=== PATIENT | female | born 1955 | race Caucasian/White ===

== ENCOUNTER → 2016-11-09 | Outpatient (CLI) | payer OTHER ==
[~2016-11-09] MED LIST: CHOL100010 PO; PARO30TA5 PO; RISP0.5T10 PO
[2016-11-09 15:55] LABS: BASO % 0.1 %; BASO ABS # 0.01 K/uL (0-0.2); COMPLETE YES; EOS % 1.2 %; HEMATOCRIT 39.9 % (37-47); IG% 0.3 %; LYMPH % 29.2 %; LYMPH ABS # 2.18 K/uL (1.2-3.4); MEAN CELL VOLUME 85.4 fL (80-100); MEAN CORPUSCULAR HEMOGLOBIN 27.6 pg (25-34); MEAN CORPUSCULAR HGB CONC 32.3 g/dl (32-36); MEAN PLATELET VOLUME 10.8 fL (7.4-10.4); MONO % 7.6 %; NEUT % 61.6 %; PLATELET COUNT 247 K/uL (130-400); RED BLOOD COUNT 4.67 M/uL (4.2-5.4); WHITE BLOOD COUNT 7.46 K/uL (4.8-10.8)
[2016-11-09 16:08] LABS: ALT/SGPT 32 U/L (12-78); AST/SGOT 24 U/L (15-37); BLOOD UREA NITROGEN 19 mg/dl (7-18); BUN/CREATININE RATIO 20.8 (10-20); CALCIUM 9.1 mg/dl (8.5-10.1); CARBON DIOXIDE 28 mmol/L (21-32); CHLORIDE 107 mmol/L (98-107); CREATININE 0.91 mg/dl (0.60-1.20); GLUCOSE 105 mg/dl (70-99); POTASSIUM 3.9 mmol/L (3.5-5.1); SODIUM 142 mmol/L (136-145)
[2016-11-09 16:19] LABS: ALKALINE PHOSPHATASE 140 U/L (45-117)
== END | disposition home or self-care (01) ==
LOC: C.LAB1850 14:51
PROVIDERS: ATTEND Internal Medicine
DX: E55.9 Vitamin D deficiency, unspecified (principal); F41.8 Other specified anxiety disorders; R53.83 Other fatigue; Z12.11 Encounter for screening for malignant neoplasm of colon; Z13.29 Encounter for screening for other suspected endocrine disorder

== ENCOUNTER → 2017-05-16 | Outpatient (CLI) | payer OTHER | END | disposition home or self-care (01) | LOC: C.LAB1850 14:50 | PROVIDERS: ATTEND Internal Medicine | DX: E55.9 Vitamin D deficiency, unspecified (principal) ==

== ENCOUNTER → 2018-02-07 | Outpatient (CLI) | payer OTHER ==
--- NOTE | 2018-02-08 13:38 | MAMMOGRAPHY REPORT ---
BILATERAL DIGITAL SCREENING MAMMOGRAM TOMOSYNTHESIS WITH CAD: 02/07/2018 CLINICAL HISTORY: Routine screening. Patient has no complaints. TECHNIQUE: The study was acquired using full field digital technology and interpreted from soft copy. Breast tomosynthesis in addition to standard 2D mammography was performed. Current study was also ev aluated with a Computer Aided Detection (CAD) system. COMPARISON: Comparison is made to exam dated: 09/19/2014 mammogram - [facility]. BREAST COMPOSITION: The tissue of both breasts is almost entirely fatty. FINDINGS: The parenchymal pattern is unchanged. No developing mass, architectural distortion or cluster of susp icious microcalcifications is seen in either breast. IMPRESSION: ACR BI-RADS CATEGORY 2: BENIGN There is no mammographic evidence of malignancy. A 1 year screening mammogram is recommended.( 019) The patient will receive written notification of the results. Some breast cancers are not detected with mammography. A negative mammographic report should not carlos y biopsy if a clinically suggestive mass is present. Jaquelin Weldon M.D. ay/:02/07/2018 19:32:00 Production Or Plant Engineer: RT Agata(R)(M)(BD), [facility] letter sent: Normal 1/2 BI-RADS Code: ACR BI-RADS Category 2: Benign
== END | disposition home or self-care (01) ==
LOC: C.MAMM 13:30
PROVIDERS: ATTEND Internal Medicine
DX: Z12.31 Encounter for screening mammogram for malignant neoplasm of breast (principal)

== ENCOUNTER 2025-01-28 15:28 | Inpatient (IN) ==
--- NOTE | 2025-01-28 16:17 | Emergency Department Note ---
Impression & Plan Sepsis, Upper respiratory infection, viral, Acute hyponatremia, Worsening renal function, Acute dehydration, Weakness, Tachycardia ED Provider Note NAME: KAMILLE STARKS AGE: 69 SEX: F : 1955 ARRIVES VIA: Walk-In INFORMANT: Patient, ED PROVIDER(S): Lei Miranda DO CHIEF COMPLAINT: chills HPI: This is a 69-year-old female with the PMHx of Hypertriglyceridemia, osteoporosis, GERD, macular degeneration, and mood disorder presenting to [facility] for further evaluation of chills. Patient is accompanied by her who provide additional history. The patient states that she has been ill for the last 10 days. Patient reports urinary frequency and incontinence. Mild dysuria. Patient states she was diagnosed with a kidney infection and started on Bactrim. She has since completed a 7-day course of Bactrim. Patient states that her urinary symptoms have mildly improved but she continues with chills. She describes that she is unable to get warm. She also describes shaking episodes. She does report mild congestion and nonproductive cough. She states that she has a mild sore throat. Patient reports lack of appetite and intermittent nausea. No episodes of emesis. Denies chest pain or palpitations. No shortness of breath. They deny abdominal pain And vomiting. No recent changes in bowel movements. Patient denies recent changes in medications or OTC supplements. Patient offers no other complaints, today. ADDITIONAL HISTORY OBTAINED: Per HPI Chronic Medical/Social Conditions Affecting Care: Per HPI PAST MEDICAL HISTORY: See Below PAST SURGICAL HISTORY: See Below FAMILY HISTORY: See Below SOCIAL HISTORY: See Below HOME MEDICATIONS: See Below ALLERGIES: See Below VITALS: See Below PHYSICAL EXAMINATION: GENERAL: Sitting up in bed, alert, well appearing, well nourished, no distress, non-toxic EYE EXAM: normal conjunctiva. PERRL and EOM's grossly intact. OROPHARYNX: no exudate, no erythema, lips, buccal mucosa, and tongue normal and mucous membranes are dry NECK: supple, no nuchal rigidity, no adenopathy, non-tender LUNGS: Clear to auscultation. Normal chest wall mechanics HEART: no murmurs, tachycardic rate, regular rhythm ABDOMEN: abdomen soft, non-tender, no masses, no rebound or guarding. BACK: Back is symmetrical on inspection and there is no deformity, no midline tenderness, no CVA tenderness. SKIN: no rashes and no bruising UPPER EXTREMITIES: upper extremities are grossly normal. LOWER EXTREMITIES: No pitting edema. NEURO EXAM: Normal sensorium, GCS 15, normal speech, no gross weakness of arms, no gross weakness of legs. MEDICAL DECISION MAKING: Differential diagnoses includes but not limited to complicated UTI, sepsis, bacteremia, pyelonephritis, renal abscess, obstructing kidney stone, viral URI, pneumonia, electrolyte derangements, kidney dysfunction, medication side effect In summary, this is a 69 year old female who presented with chills. Differential as above. Nursing notes and pertinent past medical records reviewed. Vital signs reviewed and the patient is borderline febrile and tachycardic on arrival. She is otherwise afebrile and hemodynamically stable. History and presentation revealed recent diagnosis of UTI/kidney infection by PCP. I reviewed culture data from 01/21. Patient had a urinalysis with a positive culture for E. coli. Largely pansensitive but resistant to fluoroquinolones. She has been on a course of Bactrim for the last 7 days. She completed the course. Still having what sounds like rigors at home. Poor appetite. Given the patient's rigors and ongoing features that are consistent with a SIRS response, will obtain a CT abdomen/pelvis with IV contrast for further evaluation of pyelonephritis and kidney stones. Physical examination revealed . She appears dry and tachycardic. No CVA TTP or evidence of peritonitis. As a result of my initial evaluation, The patient is still having chills. While she does have URI symptoms, she could have a complicated UTI including pyelonephritis or an obstructing stone. Patient does not have evidence of other intra-abdominal pathology but has been intermittently nauseous. I wonder if some of her symptoms could be related to the Bactrim. Could be a medication side effect. Will begin IV fluid resuscitation and broad-spectrum antibiotics. I did offer the patient pain control and antiemetics but she declined. Diagnostics interpreted by me include EKG and cardiac monitoring as listed below: -Cardiac Monitoring: An order was placed for continuous cardiac monitoring. The monitor shows a rate of 90-120 with regular rhythm. -ECG: EKG independently interpreted me reveals sinus tachycardia at a rate of [address] segment changes to suggest STEMI. Intervals are otherwise within normal limits. QTc is 414 ms. Patient completed laboratory studies and imaging. Results independently interpreted by me are VBG showing no issues with ventilation. Mild hyponatremia. Kidney function has worsened since September. Near BOB. The patient was managed with IV fluid resuscitation and cefepime. Urinalysis did not show evidence of UTI. Patient CT abdomen/pelvis was independently interpreted by me as negative for acute pathology in the abdomen or pelvis. Insert chest x-ray I question whether there could be possible retrocardiac or lower lobe infiltrates. The patient's presentation and physical examination are consistent with possible viral illness or pneumonia. She has remained tachycardic despite IV fluid resuscitation. Patient could have a viral URI that is causing her symptoms. Patient could have pneumonia. Overall workup today is reassuring. I do recommend that we continue antibiotics given concerns for possible rigors at home. Patient will need to have follow-up on her culture data including blood cultures. I do feel that the patient could likely be discharged but she feels very weak and has no appetite. She lacks p.o. intake. I do feel for this reason that she is unsafe for discharge. Will discuss with the hospitalist for admission. Ultimately, the decision was made to admit the patient for SIRS response 2/2 viral URI, question possible PNA, hyponatremia, dehydration and worsening kidney function. I discussed the case with the hospitalist service via telephone/TigerText and they are agreeable to admit the patient to their services. Based on the above, including the patient's age, coexisting illnesses, labs, imaging, and exam findings the decision to treat as an inpatient. I discussed the patient with the hospitalist team who recommended admission to their services. They received the medications, treatments, interventions indicated above and their condition remained guarded. I discussed my findings with the patient and their family and they understand and agree with the treatment plan. All patient / family questions were answered to their satisfaction. Consults/Care Managements Discussions: Per [facility] ER treatment provided: See above Procedures:none Critical Care: None The chart was completed utilizing [employer] voice recognition software. Grammatical errors, random word insertions, pronoun errors, and incomplete sentences are an occasional consequence of this system due to software limitations, ambient noise, and hardware issues. Any formal questions or concerns about the content, text, or information contained within the body of this dictation should be directly addressed to the physician for clarification. Past Med/Surg History Problem List (Updated 01/28/25 @ 20:21 by Lei Miranda DO) Tachycardia (Acute) Weakness (Acute) Acute dehydration (Acute) Worsening renal function (Acute) Acute hyponatremia (Acute) Upper respiratory infection, viral (Acute) Sepsis (Acute) Health care maintenance Macular degeneration of right eye Receives injections, "now back to 20/20 vision" Cerebrovascular disease Incidentally noted on imaging Moderate chronic small vessel change involving the periventricular and optic radiation regions per [address] Hypertriglyceridemia Osteoporosis S/P laparoscopic cholecystectomy BMI 30.0-30.9,adult Constipation Gastritis GERD (gastroesophageal reflux disease) Pre-diabetes Degenerative disc disease, cervical Allergic rhinitis (Acute) Delusional disorder Deviated septum Macular degeneration Posttraumatic stress disorder (02/28/13) Renal cyst, right Sleep disturbances Urinary incontinence Visual disturbances Vitamin D deficiency Renal lesion Under surveillance Medical History Closed fracture of metatarsal neck (~03/25/24) Biliary dyskinesia Nausea & vomiting RUQ abdominal pain Closed head injury Avulsion fracture of distal fibula Urinary incontinence Delusional disorder DDD (degenerative disc disease), cervical Hx of constipation Hx of gastritis History of hypertension Deviated septum Hx of rheumatic fever Prediabetes Ophthalmic disorder Anxiety Lower urinary tract symptoms PTSD (post-traumatic stress disorder) Hx of sinus tachycardia Dyslipidemia GERD (gastroesophageal reflux disease) Back pain Cervicalgia Kidney cysts Surgical History Hx laparoscopic cholecystectomy (08/27/24) History of nasal surgery History of esophagogastroduodenoscopy (EGD) S/P laparoscopic procedure S/P dilation and curettage History of colonoscopy Hx of eye surgery H/O tubal ligation Hx of tonsillectomy Family History Mother Diabetes Father Coronary heart disease Denies family history of Colon cancer Ovarian cancer Prostate cancer Breast cancer Uterine cancer Social History Smoking Status: Never smoker Second Hand Exposure: No; Do You Dip or Chew Tobacco: No; Hx Alcohol Use: Yes Alcohol Intake Frequency: Monthly or Less Hx Substance Use: No Preferred Language: Finnish Communication Ability: Effective Visual Impairment: No Limitations Hearing Ability: Normal Hand Trucker Required: No Beliefs That Will Affect Care: None marital status: Current Living Situation: Spouse current occupational status: unemployed How many Children do You have: 2 Feels Safe at Home: Yes Childhood Exposure to Second-Hand Smoke: No Dental Care, Regularly: Yes Physical Activity Frequency: 3-4 Times per Week Seatbelt Use: always Sunscreen Use: Yes Assistive Devices: None Allergies Allergies Allergy/AdvReac Type Severity Reaction Status Date / Time risperidone [From Risperdal] Allergy Mild aggitation Verified 01/28/25 19:16 sulfamethoxazole AdvReac Severe Chills Unverified 01/28/25 19:17 [From Bactrim] trimethoprim [From Bactrim] AdvReac Severe Chills Unverified 01/28/25 19:17 chlorpromazine AdvReac Intermediate Light Verified 01/28/25 19:16 [From Thorazine] sensitivity prochlorperazine AdvReac Intermediate Light Verified 01/28/25 19:16 sensitivity lamotrigine [From Lamictal] AdvReac Mild Itching Verified 01/28/25 19:16 naproxen AdvReac Mild Upset Verified 01/28/25 19:16 stomach venlafaxine [From Effexor] AdvReac Mild Anxiety Verified 01/28/25 19:16 Home Meds Home Medications Medication Instructions Recorded Confirmed brexpiprazole 1 mg tablet (Rexulti) 3 mg PO HS 12/12/19 01/28/25 vit C 250 mg-vit E 90 mg-zinc 40 1 tab PO BID 10/26/23 01/28/25 mg-copper 1 [id number] capsule (PreserVision AREDS-2) abaloparatide (Tymlos) 80 mcg subcut DAILY 11/14/24 01/28/25 calcium carbonate (Calcium 600) 1,200 mg PO DAILY 01/28/25 01/28/25 omega-3 fatty acids-fish oil 684 4 cap PO DAILY 01/28/25 01/28/25 mg-1,200 mg capsule,delayed release Previous Rx's Medication Instructions Recorded cholecalciferol (vitamin D3) 50 50 mcg PO DAILY #90 caps 02/08/24 mcg (2,000 unit) capsule fenofibrate nanocrystallized 48 mg 48 mg PO HS #90 tabs 01/23/25 tablet (Tricor) Results & Data (ED) Vital Signs Vital Signs - 24 hr 01/28/25 15:35 01/28/25 16:59 01/28/25 17:06 Temperature 37.7 C H Temperature Source Oral Pulse Rate 112 H 100 H 100 H Pulse Rate from SpO2 Sensor 100 H Respiratory Rate 20 24 Respiratory Effort / Characteristics Non-Labored Respiratory Depth Normal Blood Pressure 105/68 118/75 Blood Pressure Mean 80 89 Pulse Oximetry 93 92 Oxygen Delivery Method Room Air Oxygen Flow Rate Sepsis Recent Fever Within 48 Hours Yes Sepsis New/Unexplained Change in Mental Status Yes Sepsis Action Taken by Nursing No Action Required Oxygen Flow Rate - Titration Pulse Oximetry Post Tiitration 01/28/25 18:00 01/28/25 19:06 01/28/25 19:23 Temperature Temperature Source Pulse Rate 99 H 101 H Pulse Rate from SpO2 Sensor 98 H 100 H Respiratory Rate 29 H 20 Respiratory Effort / Characteristics Respiratory Depth Blood Pressure 116/76 Blood Pressure Mean 89 Pulse Oximetry 90 90 86 L Oxygen Delivery Method Nasal Cannula Oxygen Flow Rate 0 Sepsis Recent Fever Within 48 Hours Sepsis New/Unexplained Change in Mental Status Sepsis Action Taken by Nursing Oxygen Flow Rate - Titration 2 Pulse Oximetry Post Tiitration 94 Laboratory Data 01/28/25 15:50 01/28/25 17:04 Lab Results 01/28/25 01/28/25 01/28/25 Range/Units 15:50 16:32 16:35 WBC 6.19 (4.8-10.8) K/ul RBC 4.64 (4.20-5.40) M/uL Hgb 13.2 (12.0-16.0) g/dl Hct 39.1 (37.0-47.0) % MCV 84.3 (80.0-100.0) fL MCH 28.4 (25.0-34.0) pg MCHC 33.8 (32.0-36.0) g/dL RDW Std Deviation 41.1 (36.4-46.3) fL RDW Coeff of Teo 13.3 (11.5-14.5) % Plt Count 193 (130-400) K/uL MPV 11.6 (9.4-12.4) fL Immature Gran % (Auto) 0.8 % Neut % (Auto) 82.4 % Lymph % (Auto) 10.8 % Frio % (Auto) 5.2 % Eos % (Auto) 0.3 % Baso % (Auto) 0.5 % Neut # (Auto) 5.10 (1.40-6.50) K/uL Lymph # (Auto) 0.67 L (1.20-3.40) K/uL Frio # (Auto) 0.32 (0.11-0.59) K/uL Eos # (Auto) 0.02 (0.00-0.50) K/uL Baso # (Auto) 0.03 (0.00-0.20) K/uL Immature Gran # (Auto) 0.05 (0.01-0.20) K/uL Platelet Estimate Normal (Normal) VBG pH 7.38 (7.36-7.41) VBG pCO2 42 (38-50) mmHg VBG pO2 31 mmHg VBG HCO3 25 mmol/L VBG O2 Saturation < 60.0 % VBG Base Excess -0.4 mEq/L Sodium 131 L (136-145) mmol/L Potassium TNP Chloride 98 (98-107) mmol/L Carbon Dioxide 22 (21-32) mmol/L Anion Gap 11 (3-11) BUN 20 (6-23) mg/dl Creatinine 1.13 (0.6-1.2) mg/dl Est Cr Clr Drug Dosing 43.1 ml/min eGFR 52.66 BUN/Creatinine Ratio 17.7 (10-20) Glucose 113 H (70-99(Fasting)) mg/dl Lactate 1.2 (0.4-2.0) mmol/L Calcium 9.2 (8.6-10.3) mg/dl Magnesium 2.0 (1.7-2.4) mg/dl Total Bilirubin 0.5 (0.2-1.0) mg/dl AST TNP ALT 47 (7-52) U/L Alkaline Phosphatase 75 (34-104) U/L Troponin I High Sens 7.6 (0-14) pg/ml Total Protein 8.0 (6.0-8.3) gm/dl Albumin 4.3 (3.4-5.0) gm/dl Globulin 3.7 (2.5-4.0) gm/dl Albumin/Globulin Ratio 1.2 (0.9-2) Lipase 47 (11-82) U/L Procalcitonin 0.41 (0-0.5) ng/ml Urine Color Urine Appearance (Clear) Urine pH (4.5-7.5) Ur Specific Abell (1.000-1.030) Urine Protein (Negative) Urine Glucose (UA) (Negative) Urine Ketones (Negative) Urine Blood (Negative) Urine Nitrite (Negative) Urine Bilirubin (Negative) Urine Urobilinogen (Negative) Ur Leukocyte Esterase (Negative) Urine Comment Adenovirus (PCR) (NotDetected) B. pertussis DNA (PCR) (NotDetected) B.parapertussis DNA PCR (NotDetected) C. pneumoniae DNA (PCR) (NotDetected) Coronavirus OC43 (PCR) (NotDetected) Coronavirus HKU1 (PCR) (NotDetected) Coronavirus 229E (PCR) (NotDetected) SARS-CoV-2 (PCR) (NotDetected) Coronavirus NL63 (PCR) (NotDetected) Human Metapneumovir PCR (NotDetected) Influenza Type A (PCR) (NotDetected) Influenza Type B (PCR) (NotDetected) M. pneumoniae (PCR) (NotDetected) Parainfluenza 1 (PCR) (NotDetected) Parainfluenza 2 (PCR) (NotDetected) Parainfluenza 3 (PCR) (NotDetected) Parainfluenza 4 (PCR) (NotDetected) RSV (PCR) (NotDetected) Entero/Rhino (PCR) (NotDetected) 01/28/25 01/28/25 01/28/25 Range/Units 16:36 17:04 18:33 WBC (4.8-10.8) K/ul RBC (4.20-5.40) M/uL Hgb (12.0-16.0) g/dl Hct (37.0-47.0) % MCV (80.0-100.0) fL MCH (25.0-34.0) pg MCHC (32.0-36.0) g/dL RDW Std Deviation (36.4-46.3) fL RDW Coeff of Teo (11.5-14.5) % Plt Count (130-400) K/uL MPV (9.4-12.4) fL Immature Gran % (Auto) % Neut % (Auto) % Lymph % (Auto) % Frio % (Auto) % Eos % (Auto) % Baso % (Auto) % Neut # (Auto) (1.40-6.50) K/uL Lymph # (Auto) (1.20-3.40) K/uL Frio # (Auto) (0.11-0.59) K/uL Eos # (Auto) (0.00-0.50) K/uL Baso # (Auto) (0.00-0.20) K/uL Immature Gran # (Auto) (0.01-0.20) K/uL Platelet Estimate (Normal) VBG pH (7.36-7.41) VBG pCO2 (38-50) mmHg VBG pO2 mmHg VBG HCO3 mmol/L VBG O2 Saturation % VBG Base Excess mEq/L Sodium (136-145) mmol/L Potassium 3.9 Chloride (98-107) mmol/L Carbon Dioxide (21-32) mmol/L Anion Gap (3-11) BUN (6-23) mg/dl Creatinine (0.6-1.2) mg/dl Est Cr Clr Drug Dosing ml/min eGFR BUN/Creatinine Ratio (10-20) Glucose (70-99(Fasting)) mg/dl Lactate (0.4-2.0) mmol/L Calcium (8.6-10.3) mg/dl Magnesium (1.7-2.4) mg/dl Total Bilirubin (0.2-1.0) mg/dl AST 61 H ALT (7-52) U/L Alkaline Phosphatase (34-104) U/L Troponin I High Sens (0-14) pg/ml Total Protein (6.0-8.3) gm/dl Albumin (3.4-5.0) gm/dl Globulin (2.5-4.0) gm/dl Albumin/Globulin Ratio (0.9-2) Lipase (11-82) U/L Procalcitonin (0-0.5) ng/ml Urine Color Yellow Urine Appearance Clear (Clear) Urine pH 5.5 (4.5-7.5) Ur Specific Abell 1.045 H (1.000-1.030) Urine Protein Negative (Negative) Urine Glucose (UA) Negative (Negative) Urine Ketones Negative (Negative) Urine Blood Negative (Negative) Urine Nitrite Negative (Negative) Urine Bilirubin Negative (Negative) Urine Urobilinogen Negative (Negative) Ur Leukocyte Esterase Negative (Negative) Urine Comment Adenovirus (PCR) Not Detected (NotDetected) B. pertussis DNA (PCR) Not Detected (NotDetected) B.parapertussis DNA PCR Not Detected (NotDetected) C. pneumoniae DNA (PCR) Not Detected (NotDetected) Coronavirus OC43 (PCR) Not Detected (NotDetected) Coronavirus HKU1 (PCR) Not Detected (NotDetected) Coronavirus 229E (PCR) Not Detected (NotDetected) SARS-CoV-2 (PCR) Not Detected (NotDetected) Coronavirus NL63 (PCR) Not Detected (NotDetected) Human Metapneumovir PCR Not Detected (NotDetected) Influenza Type A (PCR) Not Detected (NotDetected) Influenza Type B (PCR) Not Detected (NotDetected) M. pneumoniae (PCR) Not Detected (NotDetected) Parainfluenza 1 (PCR) Not Detected (NotDetected) Parainfluenza 2 (PCR) Not Detected (NotDetected) Parainfluenza 3 (PCR) Not Detected (NotDetected) Parainfluenza 4 (PCR) Not Detected (NotDetected) RSV (PCR) Not Detected (NotDetected) Entero/Rhino (PCR) Not Detected (NotDetected) Administered Medications Parenteral Electrolytes (Plasma-Lyte A Ph 7.4) 1,000 mls @ 80 mls/hr IV .[id number] KARAN Stop: 01/29/25 08:14 Last Admin: 01/28/25 20:08 Dose: 80 mls/hr Documented By: NRB Discontinued Medications Cefepime HCl (Maxipime 2000mg) 2,000 mg in 20 mls @ 5 mls/min IV NOW STA; Protocol Stop: 01/28/25 16:20 Last Admin: 01/28/25 17:16 Dose: 5 mls/min Documented By: NRB Parenteral Electrolytes (Plasma-Lyte A Ph 7.4) 1,000 mls @ 999 mls/hr IV .[id number] ONE Stop: 01/28/25 17:17 Last Infusion: 01/28/25 20:08 Dose: Infused Documented By: Admin: 01/28/25 17:16 Dose: 999 mls/hr Documented By: HORTENSIA Ioversol (Optiray 320 100ml) 94 ml IV ONCE ONE Stop: 01/28/25 17:30 Last Admin: 01/28/25 17:29 Dose: 94 ml Documented By: EVANGELINA Imaging Data Radiologist's Impression: Chest X-Ray 01/28/25 16:17 EXAM: X-ray chest one-view portable CLINICAL HISTORY: Chest pain PRIORS: None TECHNIQUE: Upright AP patient is rotated. FINDINGS: The chest is well-expanded. No airspace consolidation, effusion or congestive changes. Cardiac silhouette enlarged.. No pneumothorax. Trachea is patent. Osseous structures demonstrate no acute abnormality. No radiopaque foreign body. IMPRESSION: No plain film evidence of an acute cardiopulmonary process. Electronically signed by Sherly Lynch 01-28-2025 6:02 PM Abdomen/Pelvis CT 01/28/25 16:24 EXAMINATION: Abdomen and pelvis CT with CLINICAL HISTORY: Evaluate for pyelonephritis, obstructing calculus. PRIORS: No ultrasound 08/10/2024 TECHNIQUE: Contiguous axial images were obtained through the abdomen and pelvis with the use of intravenous contrast. Sagittal and coronal reformations are supplied. FINDINGS: Hypoventilatory change in the left lung base with atelectasis. Fatty infiltration of the liver noted. Gallbladder is surgically absent. The portal vein, pancreas, spleen, under distended stomach, adrenals, aorta and IVC are morphologically unremarkable. The kidneys enhance symmetrically with no striated nephrogram, perinephric stranding or hydronephrosis. A right renal simple cyst is noted measuring 4 cm. No obstructing or nonobstructing renal calculus. Urinary bladder partly distended and morphologically unremarkable. No retroperitoneal adenopathy or hemorrhage. Large amount of formed stool present in the colon. No pericolonic inflammatory change or dilated loops of bowel. No ascites, adenopathy or extraluminal gas. No significant atherosclerotic disease of the aorta. An atrophic uterus is present. No large adnexal cyst. No free fluid in the pelvis. Urinary bladder distends normally. In bone windows, mild osseous demineralization with moderate facet hypertrophic changes at L4 additional 5 and L5-S1. IMPRESSION: 1. No CT evidence of an acute abdominal or pelvic abnormality. No features of pyelonephritis or obstructing calculus. 2. Fatty infiltration of the liver. 3. Large amount of formed stool in the colon. 4. Right renal cyst measuring 4 cm. Electronically signed by Hananedevaughn Sherly 01-28-2025 6:01 PM Discharge Plan Visit Data Chief Complaint: Urinary Symptoms Stated Complaint: HAD KIDNEY INFECTION ED Provider: Lei Miranda Discharge Problem: Sepsis, Upper respiratory infection, viral, Acute hyponatremia, Worsening renal function, Acute dehydration, Weakness, Tachycardia Patient Disposition: Admitted As Inpatient Condition: Fair Forms Stand Alone Forms: [facility] Prescriptions Prescriptions: No Action fenofibrate nanocrystallized [Tricor] 48 mg tablet 48 mg PO HS Qty: 90 3RF Rexulti 1 mg tablet 3 mg PO HS cholecalciferol (vitamin D3) 50 mcg (2,000 unit) capsule 50 mcg PO DAILY Qty: 90 3RF Rx Instructions: with heaviest meal of the day Tymlos 80 mcg (3,120 mcg/1.56 mL) pen injector 80 mcg subcut DAILY Rx Instructions: inject into abdomen; do not inject within 2 inches of belly button/navel; rotate sites calcium carbonate [Calcium 600] 600 mg calcium (1,500 mg) Tablet 1,200 mg PO DAILY [place] 3 Fish Oil 684-1,200 mg Capsule,Delayed Release(Dr/Ec) 4 cap PO DAILY PreserVision AREDS-2 250-90-40-1 mg Capsule 1 tab PO BID Referrals Referrals: Conner Mckeon MD [Primary Care Provider] -
[2025-01-28 16:45] LABS: Base Excess VBG -0.4 mEq/L; HCO3 VBG 25 mmol/L; Oxygen Saturation VBG < 60.0 %; PCO2 VBG 42 mmHg (38-50); PO2 VBG 31 mmHg; pH VBG 7.38 (7.36-7.41)
[2025-01-28 16:53] LABS: Alanine Aminotransferase 47 U/L (7-52); Albumin Globulin Ratio 1.2 (0.9-2); Alkaline Phosphatase 75 U/L (34-104); Anion Gap 11 (3-11); Bilirubin,Total 0.5 mg/dl (0.2-1.0); Blood Urea Nitrogen 20 mg/dl (6-23); Calcium 9.2 mg/dl (8.6-10.3); Carbon Dioxide 22 mmol/L (21-32); Chloride 98 mmol/L (98-107); Creatinine Clr Calc Pharmacy 43.1 ml/min; Globulin 3.7 gm/dl (2.5-4.0); Glucose 113 mg/dl (70-99(Fasting)); Lipase 47 U/L (11-82); Magnesium 2.0 mg/dl (1.7-2.4); Sodium 131 mmol/L (136-145); Total Protein 8.0 gm/dl (6.0-8.3)
[2025-01-28] MEDS: CEFEPIME 2000MG 2,000 MG/20 ML SYR IV STA (17:16)
[2025-01-28] MEDS: PLASMA-LYTE A 1,000 ML IV ONE (17:16)
[2025-01-28] MEDS: OPTIRAY 320 100ml IV ONE (17:29)
[2025-01-28 17:33] LABS: Potassium 3.9 mmol/L (3.5-5.1)
[2025-01-28 17:35] LABS: Hematocrit (blood only) 39.1 % (37.0-47.0); Hemoglobin 13.2 g/dl (12.0-16.0); Immature Granulocytes # (auto) 0.05 K/uL (0.01-0.20); Immature Granulocytes % (auto) 0.8 %; Mean Corpuscular Hemoglobin 28.4 pg (25.0-34.0); Mean Corpuscular Volume 84.3 fL (80.0-100.0); Platelet Count 193 K/uL (130-400); RDW Standard Deviation 41.1 fL (36.4-46.3); Red Blood Count 4.64 M/uL (4.20-5.40); White Blood Count 6.19 K/ul (4.8-10.8)
[2025-01-28 17:37] LABS: Chlamydia pneumoniae PCR Not Detected (NotDetected); Coronavirus 229E PCR Not Detected (NotDetected); Coronavirus CoV-2 (COVID19)PCR Not Detected (NotDetected); Coronavirus HKU1 PCR Not Detected (NotDetected); Coronavirus NL63 PCR Not Detected (NotDetected); Coronavirus OC43PCR Not Detected (NotDetected); Human Metapneumovirus PCR Not Detected (NotDetected); Parainfluenza Virus 1 PCR Not Detected (NotDetected); Parainfluenza Virus 2 PCR Not Detected (NotDetected); Parainfluenza Virus 3 PCR Not Detected (NotDetected); Parainfluenza Virus 4 PCR Not Detected (NotDetected); Respiratory Syncytial VirusPCR Not Detected (NotDetected); Rhinovirus/Enterovirus PCR Not Detected (NotDetected)
--- NOTE | 2025-01-28 18:01 | CT Scan Report ---
EXAMINATION: Abdomen and pelvis CT with CLINICAL HISTORY: Evaluate for pyelonephritis, obstructing calculus. PRIORS: No ultrasound 08/10/2024 TECHNIQUE: Contiguous axial images were obtained through the abdomen and pelvis with the use of intravenous contrast. Sagittal and coronal reformations are supplied. FINDINGS: Hypoventilatory change in the left lung base with atelectasis. Fatty infiltration of the liver noted. Gallbladder is surgically absent. The portal vein, pancreas, spleen, under distended stomach, adrenals, aorta and IVC are morphologically unremarkable. The kidneys enhance symmetrically with no striated nephrogram, perinephric stranding or hydronephrosis. A right renal simple cyst is noted measuring 4 cm. No obstructing or nonobstructing renal calculus. Urinary bladder partly distended and morphologically unremarkable. No retroperitoneal adenopathy or hemorrhage. Large amount of formed stool present in the colon. No pericolonic inflammatory change or dilated loops of bowel. No ascites, adenopathy or extraluminal gas. No significant atherosclerotic disease of the aorta. An atrophic uterus is present. No large adnexal cyst. No free fluid in the pelvis. Urinary bladder distends normally. In bone windows, mild osseous demineralization with moderate facet hypertrophic changes at L4 additional 5 and L5-S1. IMPRESSION: 1. No CT evidence of an acute abdominal or pelvic abnormality. No features of pyelonephritis or obstructing calculus. 2. Fatty infiltration of the liver. 3. Large amount of formed stool in the colon. 4. Right renal cyst measuring 4 cm. Electronically signed by Sherly Lynch 01-28-2025 6:01 PM
--- NOTE | 2025-01-28 18:02 | XRay Report ---
EXAM: X-ray chest one-view portable CLINICAL HISTORY: Chest pain PRIORS: None TECHNIQUE: Upright AP patient is rotated. FINDINGS: The chest is well-expanded. No airspace consolidation, effusion or congestive changes. Cardiac silhouette enlarged.. No pneumothorax. Trachea is patent. Osseous structures demonstrate no acute abnormality. No radiopaque foreign body. IMPRESSION: No plain film evidence of an acute cardiopulmonary process. Electronically signed by Sherly Lynch 01-28-2025 6:02 PM
[2025-01-28 18:58] LABS: Appearance Urine Clear (Clear); Glucose Urine UA Negative (Negative)
--- NOTE | 2025-01-28 19:44 | History & Physical Report ---
Date of Service January 28, 2025 Assessment & Plan (1) Medication adverse effect: (2) Weakness: (3) Tachycardia: (4) Hypoxia: Plan Patient is a 69-year-old female with a past medical history of GERD, vitamin D deficiency, insomnia. Patient was treated for a UTI and suspected pyelon ephritis with a 7-day course of Bactrim (completed course 01/26). Cultures grew E. coli resistant to quinolones. Patient presented to the ED due to persistent nausea, fatigue, weakness, poor appetite, vomiting, chills that began several days after starting Bactrim. Diagnostic imaging revealed no signs of infection, UA negative, patient with tachycardia however explained by dehydration. She is being admitted for observation overnight with suspected Bactrim adverse reaction however bacteremia remains on differential. #Medication adverse reaction suspect adverse reaction to Bactrim. Nonseptic at time of admission - mild tachycardia, otherwise VSS, lactate negative, procal negative, no leukocytosis. Appears as though UTI is cleared, UA negative, APCT negative for cystitis or pyelonephritis. - bacteremia remains on differential, follow blood cultures - prophylactically given cefepime in ED, will continue Clear liquid diet, advance as tolerated Zofran as needed for nausea - Tylenol prn for pain - trend CBC - anticipate symptoms to improve as last dose of Bactrim 01/26 #tachycardia - suspect 2/2 dehydration (poor p.o. intake, vomiting, and urine specific gravity elevated), improving with IVF. Hr as high as 112 in ED. Troponin 7.6. EKG showed sinus tachycardia. - 1L plasmalyte bolus in ed - continue plasmalyte 1L at 80 mL/hour - monitor on tele - PCP aware and to have Holter monitor and echo in outpatient setting; continue as out patient follow up #hypoxia - reported 86% on room air, titrated off 1L NC at time of admission. CXR negative for acute infection. Bio fire negative. Magnesium 2.0. VBG WNL. Patient denies personal or family history of VTE. - d dimer ordered -> 1160, will obtain CTA chest Incentive spirometry #hyponatremia - 2/2 hypovolemia vs Bactrim use. Na 131. - IVF as above - trend BMP #constipation - AP CT showed large amount of stool in colon. - Miralax daily scheduled, 1st dose on admission #hypertriglyceridemia - continue fenofibrate #Osteoporosis/vitamin D deficiency continue Tymlos #mental health - continue Rexulti VTE ppx: SCDs, low risk and obs status; if prolonged stay consider chemical ppx Dispo: med/tele, anticipate dc home 01/29 if symptoms improve Admission and Anticipated Discharge Date Admission Date: 01/28/25 History of Present Illness Chief Complaint: urinary sx Primary Care Provider: Conner Mckeon MD Patient is a 69-year-old female with a past medical history of GERD, vitamin D deficiency, insomnia. Patient was treated for a UTI and suspected pyelonephritis with a 7-day course of Bactrim (completed course 01/26). Cultures grew E. coli resistant to quinolones. Patient presented to the ED due to persistent nausea, fatigue, weakness, poor appetite, vomiting, chills that began several days after starting Bactrim. Diagnostic imaging revealed no signs of infection, UA negative, patient with tachycardia however explained by dehydration. She is being admitted for observation overnight with suspected Bactrim adverse reaction however bacteremia remains on differential. Patient seen at bedside with her present. She was greatly concerned about going home and returning to the ED with her persistent symptoms. She had never had Bactrim before so she is unsure if she is allergic to it. She was treated for UTI and suspected kidney infection with 7 days of Bactrim which she finished 2 days ago in the morning. She was having symptoms of dysuria and lower abdominal pain that resolved with the Bactrim however did restart this evening. UA is negative for infection and APCT negative for cystitis or pyelonephritis. She stated several days after starting the Bactrim she developed nausea, weakness, fatigue, poor appetite, muscle aches, chills, and a cough. She then started vomiting last night. She has felt too weak to do much of anything. She denies any chest pain, heart palpitations, dyspnea, edema. She denies nicotine or significant alcohol use. She was on 1 L nasal cannula at time of admission however no reported episodes of hypoxia and does not use oxygen at baseline. Patient felt like she was anxious when they started this. She is due for her evening medications. She wishes to be full code. Patient stated her watch told her her heart rate was elevated in the 160s with this illness so her PCP is following up outpatient with an echocardiogram and possible Holter monitor. Tachycardia resolving with IV fluids in the ED and patient with poor p.o. intake. Allergies Allergy/AdvReac Type Severity Reaction Status Date / Time risperidone [From Risperdal] Allergy Mild aggitation Verified 01/28/25 19:16 sulfamethoxazole AdvReac Severe Chills Unverified 01/28/25 19:17 [From Bactrim] trimethoprim [From Bactrim] AdvReac Severe Chills Unverified 01/28/25 19:17 chlorpromazine AdvReac Intermediate Light Verified 01/28/25 19:16 [From Thorazine] sensitivity prochlorperazine AdvReac Intermediate Light Verified 01/28/25 19:16 sensitivity lamotrigine [From Lamictal] AdvReac Mild Itching Verified 01/28/25 19:16 naproxen AdvReac Mild Upset Verified 01/28/25 19:16 stomach venlafaxine [From Effexor] AdvReac Mild Anxiety Verified 01/28/25 19:16 Home Medications Medication Instructions Recorded Confirmed Type brexpiprazole 1 mg tablet (Rexulti) 3 mg PO HS 12/12/19 01/28/25 History vit C 250 mg-vit E 90 mg-zinc 40 1 tab PO BID 10/26/23 01/28/25 History mg-copper 1 [id number] capsule (PreserVision AREDS-2) cholecalciferol (vitamin D3) 50 50 mcg PO DAILY #90 caps 02/08/24 01/28/25 Rx mcg (2,000 unit) capsule abaloparatide (Tymlos) 80 mcg subcut DAILY 11/14/24 01/28/25 History fenofibrate nanocrystallized 48 mg 48 mg PO HS #90 tabs 01/23/25 01/28/25 Rx tablet (Tricor) calcium carbonate (Calcium 600) 1,200 mg PO DAILY 01/28/25 01/28/25 History omega-3 fatty acids-fish oil 684 4 cap PO DAILY 01/28/25 01/28/25 History mg-1,200 mg capsule,delayed release Past Med/Surg History Problem List (Updated 01/28/25 @ 22:20 by Background Daemon) Hypoxia Medication adverse effect Tachycardia (Acute) Weakness (Acute) Acute dehydration (Acute) Worsening renal function (Acute) Acute hyponatremia (Acute) Upper respiratory infection, viral (Acute) Sepsis (Acute) Health care maintenance Macular degeneration of right eye Receives injections, "now back to 20/20 vision" Cerebrovascular disease Incidentally noted on imaging Moderate chronic small vessel change involving the periventricular and optic radiation regions per [address] Hypertriglyceridemia Osteoporosis S/P laparoscopic cholecystectomy BMI 30.0-30.9,adult Constipation Gastritis GERD (gastroesophageal reflux disease) Pre-diabetes Degenerative disc disease, cervical Allergic rhinitis (Acute) Delusional disorder Deviated septum Macular degeneration Posttraumatic stress disorder (02/28/13) Renal cyst, right Sleep disturbances Urinary incontinence Visual disturbances Vitamin D deficiency Renal lesion Under surveillance Medical History Closed fracture of metatarsal neck (~03/25/24) Biliary dyskinesia Nausea & vomiting RUQ abdominal pain Closed head injury Avulsion fracture of distal fibula Urinary incontinence Delusional disorder DDD (degenerative disc disease), cervical Hx of constipation Hx of gastritis History of hypertension Deviated septum Hx of rheumatic fever Prediabetes Ophthalmic disorder Anxiety Lower urinary tract symptoms PTSD (post-traumatic stress disorder) Hx of sinus tachycardia Dyslipidemia GERD (gastroesophageal reflux disease) Back pain Cervicalgia Kidney cysts Surgical History Hx laparoscopic cholecystectomy (08/27/24) History of nasal surgery History of esophagogastroduodenoscopy (EGD) S/P laparoscopic procedure S/P dilation and curettage History of colonoscopy Hx of eye surgery H/O tubal ligation Hx of tonsillectomy Family History Mother Diabetes Father Coronary heart disease Denies family history of Colon cancer Ovarian cancer Prostate cancer Breast cancer Uterine cancer Social History Smoking Status: Never smoker Second Hand Exposure: No; Do You Dip or Chew Tobacco: No; Hx Alcohol Use: Yes Alcohol Intake Frequency: Monthly or Less Hx Substance Use: No Preferred Language: Persian Communication Ability: Effective Visual Impairment: No Limitations Hearing Ability: Normal Production Planner Required: No Beliefs That Will Affect Care: None marital status: Current Living Situation: Spouse current occupational status: unemployed How many Children do You have: 2 Feels Safe at Home: Yes Childhood Exposure to Second-Hand Smoke: No Dental Care, Regularly: Yes Physical Activity Frequency: 3-4 Times per Week Seatbelt Use: always Sunscreen Use: Yes Assistive Devices: None Review of Systems Review of Systems: see HPI Physical Exam Physical Exam: The patient is awake, alert and oriented 3, well developed and well nourished, normocephalic and atraumatic, in no acute distress. Non-toxic appearing. HEENT- EOMI, mucous membranes dry. Hearing grossly intact. Heart-normal S1 and S2. No murmurs, rubs or gallops. Lungs-clear bilaterally, no respiratory distress, no accessory muscle use. Abdomen-normal bowel sounds and soft. No ascites noted. Non-tender. Extremities- no clubbing, cyanosis, or edema. Rheumatologic-normal range of motion. Psychiatric-normal affect. Results & Data Results & Data Vital Signs (Past 12 Hours) Vital Signs Temp Pulse Resp BP Pulse Ox O2 Del Method O2 Flow Rate 01/28/25 19:23 86 L Nasal Cannula 0 01/28/25 19:06 101 H 20 90 01/28/25 18:00 99 H 29 H 116/76 90 01/28/25 17:06 100 H 24 118/75 92 01/28/25 16:59 100 H 01/28/25 15:35 37.7 C H 112 H 20 105/68 93 Room Air Laboratory Results Reviewed CBC, CMP, VBG, lactate, magnesium, troponin, procalcitonin, UA, lipase, BioFire Diagnostic Findings reviewed CXR and abdomen pelvis CT Medications Administered ED1L Plasma-Lyte bolus, cefepime IV ECG Additional Comments: sinus tachycardia Code Status & VTE Plan Code Status full VTE Prophylaxis Plan VTE Prophylaxis will be ordered: Yes Supervising Physician Co-Signing Physician Notes Attending addendum: I have physically seen this patient, have supervised the MELISSA's activities, and agree with the H&P unless as otherwise noted. Assessment and Plan: The patient is a 69-year-old female with past medical history including GERD, vitamin D deficiency, insomnia, hypertriglyceridemia, osteoporosis, prediabetes, delusional disorder, PTSD and vitamin D deficiency. The patient presents to the emergency department with persistent symptoms of nausea, fatigue, generalized weakness, decreased appetite, intermittent vomiting, and chills that began 2 days after completing full course of Bactrim that she was on for urinary tract infection. She denies any rash. Medication adverse reaction- Symptoms are consistent with adverse reaction to Bactrim. Will follow urine culture and sensitivity and empirically continue cefepime 2 g IV every 12 hours for now Full liquid diet advance as tolerated Zofran 4 mg IV every 6 hours as needed Acetaminophen as needed pain or fever Tachycardia- Likely secondary to dehydration associated decreased oral intake EKG otherwise normal, and troponin is 7.6 Status post 1 L Plasma-Lyte bolus in ED Continue Plasma-Lyte at 80 mL/h x 1 additional liter Admit to telemetry Patient reports that her outpatient PCP has been considering getting an echocardiogram Hypoxia- Oxygenation reportedly was 86% on room air, however, presently is 92 to 94% on room air D-dimer ordered, it was elevated. CTA chest was negative for PE Incentive spirometry Symptoms may be secondary to conditions such as Raynaud's Hyponatremia- Sodium 131 on admission Likely associated with Bactrim use and hypovolemia Repeat laboratories in the a.m. PG Care Time/CCT Total # of Minutes Spent Total Time Spent with Patient: Total time spent is greater than 50% in coordination of care (as documented) at patient's floor/unit and/or counseling patient: Coding Level of Care Code 31417 INT INP/OBS CARE 3/75MIN Diagnoses Medication adverse effect T50.905A Weakness R53.1 Tachycardia R00.0 Hypoxia R09.02
[2025-01-28] MEDS: PLASMA-LYTE A 1,000 ML IV SCH (20:08)
[2025-01-28] MEDS: OPTIRAY 320 125ml IV ONE (21:53)
[2025-01-28] MEDS ORDERED: MELATONIN 3 MG TAB PO PRN (22:21)
[2025-01-28] MEDS ORDERED: ACETAMINOPHEN 325 MG TAB PO PRN (22:21)
--- NOTE | 2025-01-28 22:57 | CT Scan Report ---
Exam(s): CTA CHEST EXAM: CT Angiography Chest With Intravenous Contrast CLINICAL HISTORY: Reason for exam: PE. TECHNIQUE: Axial computed tomographic angiography images of the chest with intravenous contrast. CTDI is 18.18 mGy and DLP is 518.8 mGy-cm. Automated exposure control was utilized for the study. A dose lowering technique was utilized adhering to the principles of ALARA. MIP reconstructed images were created and reviewed. COMPARISON: No relevant prior studies available. FINDINGS: Pulmonary arteries: No pulmonary embolism. Aorta: No acute findings. Normal caliber. No dissection. Lungs: No pulmonary infarct. Mild atelectasis at the lung bases left greater than right. No consolidation or edema. Pleural space: No pleural effusion. No pneumothorax. Heart: Unremarkable. Bones/joints: No acute fracture. Soft tissues: Unremarkable. Lymph nodes: Unremarkable. IMPRESSION: No pulmonary embolism. Electronically signed by: Ky Shin MD 01/28/25 22:56 PM
[2025-01-28] MEDS: FENOFIBRATE NANOCRYSTALLIZED 48 MG TABLET PO SCH (23:27)
[2025-01-28] MEDS: POLYETHYLENE (MIRALAX) 17 GM PACK PO ONE (23:27)
[2025-01-29] MEDS: CEFEPIME 2000MG 2,000 MG/20 ML SYR IV SCH (05:43)
[2025-01-29] MEDS: POLYETHYLENE (MIRALAX) 17 GM PACK PO SCH (08:11)
[2025-01-29] MEDS: DOCUSATE SODIUM 100 MG CAP PO PRN (08:11)
[2025-01-29 10:55] LABS: Anion Gap 7.0 (3-11); Blood Urea Nitrogen 15.0 mg/dl (6-23); Calcium 8.5 mg/dl (8.6-10.3); Carbon Dioxide 25.0 mmol/L (21-32); Chloride 102.0 mmol/L (98-107); Creatinine Clr Calc Pharmacy 54.3 ml/min; Glucose 196.0 mg/dl (70-99(Fasting)); Potassium 3.5 mmol/L (3.5-5.1); Sodium 134.0 mmol/L (136-145)
[2025-01-29 10:56] LABS: Alanine Aminotransferase 38.0 U/L (7-52); Alkaline Phosphatase 66.0 U/L (34-104); Bilirubin,Total 0.4 mg/dl (0.2-1.0); Total Protein 6.4 gm/dl (6.0-8.3)
[2025-01-29 10:59] LABS: Hematocrit (blood only) 33.1 % (37.0-47.0); Hemoglobin 11.0 g/dl (12.0-16.0); Mean Corpuscular Hemoglobin 28.2 pg (25.0-34.0); Mean Corpuscular Volume 84.9 fL (80.0-100.0); Platelet Count 127 K/uL (130-400); RDW Standard Deviation 40.7 fL (36.4-46.3); Red Blood Count 3.90 M/uL (4.20-5.40); White Blood Count 4.01 K/ul (4.8-10.8)
[2025-01-29 11:00] LABS: Immature Granulocytes # (auto) 0.03 K/uL (0.01-0.20); Immature Granulocytes % (auto) 0.7 %; Toxic Vacuolation 1+
--- NOTE | 2025-01-29 13:11 | Electrocardiogram Report ---
Test Reason : Blood Pressure : */* mmHG Vent. Rate : 101 BPM Atrial Rate : 101 BPM P-R Int : 140 ms QRS Dur : 68 ms QT Int : 320 ms P-R-T Axes : -15 -7 -3 degrees QTcB Int : 414 ms Sinus tachycardia Inferior infarct , age undetermined Abnormal ECG When compared with ECG of 02-Nov-2023 09:26, Inferior infarct is now Present Nonspecific T wave abnormality now evident in Inferior leads Confirmed by Andres Blood ([id number]) on 01/29/2025 1:11:52 PM Referred By: Conner Mckeon Confirmed By: Andres Blood
[2025-01-29] MEDS: PANTOprazole 40 MG/10 ML SYR IV SCH (14:31)
[2025-01-29] MEDS: TYMLOS SQ SCH (14:31)
--- NOTE | 2025-01-29 16:27 | Hospitalist Progress Note ---
Date of Service January 29, 2025 Assessment & Plan (1) Medication adverse effect: (2) Weakness: (3) Tachycardia: (4) Hypoxia: Plan Patient is a 69-year-old female with a past medical history of GERD, vitamin D deficiency, insomnia. Patient was treated for a UTI and suspected pyelon ephritis with a 7-day course of Bactrim (completed course 01/26). Cultures grew E. coli resistant to quinolones. Patient presented to the ED due to persistent nausea, fatigue, weakness, poor appetite, vomiting, chills that began several days after starting Bactrim. Diagnostic imaging revealed no signs of infection, UA negative, patient with tachycardia however explained by dehydration - however reports this has been an issue outpatient as well #Medication adverse reaction suspect adverse reaction to Bactrim (last dose 01/26). Nonseptic at time of admission - mild tachycardia, otherwise VSS, lactate negative, procal negative, no leukocytosis. Appears as though UTI is cleared, UA negative, APCT negative for cystitis or pyelonephritis. However resolving bacteremia remains on differential Blood cultures: pending Continue cefepime Having nausea - prn zofran. IV PPI added Mild LFT elevation - trend Concern for low grade fever this AM but resolved spontaneously - patient was asymptomatic with this, when having significant chills and rigors at home. Pain control: tylenol #tachycardia - suspect 2/2 dehydration (poor p.o. intake, vomiting, and urine specific gravity elevated), improving with IVF. Hr as high as 112 in ED. Troponin 7.6. EKG showed sinus tachycardia. Received 2L IVFs. Has been having issues with tachycardia outpatient - has Holter monitor and echo in outpatient setting; continue as out patient follow up #hypoxia - CXR negative for acute infection. Bio fire negative. Magnesium 2.0. VBG WNL. - d dimer 1160, CTA chest without PE #hyponatremia - 2/2 hypovolemia vs Bactrim use. Na 131 improved to 134. trend BMP #constipation - AP CT showed large amount of stool in colon. Miralax daily scheduled, prn colace #Elevated LFTs-mild, improving. CT A/P does show fatty liver or could be frmo recent infection -follow LFTs in AM #hypertriglyceridemia - continue fenofibrate #Osteoporosis/vitamin D deficiency continue Tymlos #mental health - continue Rexulti VTE ppx: SCDs, encourage ambulation Dispo: continued inpatient stay Admission and Anticipated Discharge Date Admission Date: January 28, 2025 Supervising Physician Co-Signing Physician Notes PA Supervision Note: I did not personally see or examine the patient today, but I verified all ignacio points of KAREN Jasso's assessment and plan with the following exceptions/additions: None Subjective Patient seen earlier this morning, present at bedside. Kirstin has been ambulating without a walker to the bathroom but reports still feeling below her baseline. She was able to eat a few bites of breakfast but then got nauseous - no problems with nausea prior to the bactrim Her and her both express frustrations about their care and think that she is having the reaction because the PA prescribed a medication instead of a doctor. They are also upset with the amount of providers they have seen this admissions and requesting to see a doctor I tried to speak to them about a plan and they were more focused about seeing a doctor - I assured them a doctor would be seeing them tomorrow Tele SR/ST 90-100s Review of Systems Review of Systems: All systems reviewed & are unremarkable except as noted in Subjective Physical Exam Physical Exam: General: NAD, VS as above Resp: normal respiratory effort, lungs clear to auscultation CV: RRR, no murmur, Abd: normal bowel sounds, non tender, no hepatosplenomegaly Extremities: Moves all extremities, no edema Neuro: A&O x3, Results & Data Results & Data Vital Signs (Past 12 Hours) Vital Signs Temp Pulse Pulse Resp BP BP Pulse Ox 01/29/25 16:06 98.6 F 99 H 17 113/70 91 01/29/25 13:31 94 H 01/29/25 11:53 98.2 F 95 H 18 126/80 90 01/29/25 09:33 97.9 F 01/29/25 08:17 99.7 F H 94 H 18 103/61 92 01/29/25 08:10 01/29/25 07:06 99 H O2 Del Method 01/29/25 16:06 Room Air 01/29/25 13:31 01/29/25 11:53 Room Air 01/29/25 09:33 01/29/25 08:17 Room Air 01/29/25 08:10 Room Air 01/29/25 07:06 Laboratory Results cbc and chemsitru reviewed d-dimer reviewed Diagnostic Findings chest CTA reviewed PG Care Time/CCT Total # of Minutes Spent Total Time Spent with Patient: Total time spent is greater than 50% in coordination of care (as documented) at patient's floor/unit and/or counseling patient: Coding Level of Care Code 94278 SUB INP/OBS CARE 3/50MIN Diagnoses Medication adverse effect T50.905A Weakness R53.1 Tachycardia R00.0 Hypoxia R09.02
[2025-01-29] MEDS: BREXPIPRAZOLE 1 MG TAB PO SCH (21:44)
[2025-01-29] MEDS: CEROVITE ADV FORMULA TAB PO SCH (21:44)
[2025-01-30 08:05] LABS: Anion Gap 8.0 (3-11); Bilirubin,Total 0.5 mg/dl (0.2-1.0); Calcium 8.8 mg/dl (8.6-10.3); Carbon Dioxide 25.0 mmol/L (21-32); Chloride 110.0 mmol/L (98-107); Potassium 3.7 mmol/L (3.5-5.1); Sodium 143.0 mmol/L (136-145)
[2025-01-30 08:11] LABS: Alanine Aminotransferase 42.0 U/L (7-52); Albumin Globulin Ratio 1.4 (0.9-2); Alkaline Phosphatase 69.0 U/L (34-104); Blood Urea Nitrogen 17.0 mg/dl (6-23); Creatinine Clr Calc Pharmacy 58.9 ml/min; Globulin 2.6 gm/dl (2.5-4.0); Glucose 92.0 mg/dl (70-99(Fasting)); Total Protein 6.3 gm/dl (6.0-8.3)
[2025-01-30 08:35] LABS: Hematocrit (blood only) 34.4 % (37.0-47.0); Hemoglobin 11.8 g/dl (12.0-16.0); Mean Corpuscular Hemoglobin 29.1 pg (25.0-34.0); Mean Corpuscular Volume 84.9 fL (80.0-100.0); Platelet Count 140 K/uL (130-400); RDW Standard Deviation 40.2 fL (36.4-46.3); Red Blood Count 4.05 M/uL (4.20-5.40); White Blood Count 3.59 K/ul (4.8-10.8)
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
[2025-01-30 13:35] LABS: Creatine Kinase 81.0 U/L (26-192); Iron 51.0 mcg/dl (35-150); Total Iron Binding Cap Calc 409.0 mcg/dl (250-450); Transferrin 292.0 mg/dl (200-360); Transferrin (FE) Percent Satur 12.0 % (15-50)
[2025-01-30 13:54] LABS: Ferritin 227.0 ng/ml (8-388)
[2025-01-30 14:01] LABS: Folate (Folic Acid),Ser orPlas > 22.30 ng/ml (>5.38)
[2025-01-30 14:02] LABS: Vitamin B12 559 pg/ml (180-914)
[2025-01-30] MEDS: BACLOFEN 10 MG TAB PO SCH (21:14)
[2025-01-31 07:43] LABS: Hemoglobin A1C 6.2 % (4.5-5.6)
[2025-01-31 07:48] LABS: Hematocrit (blood only) 34.1 % (37.0-47.0); Hemoglobin 11.3 g/dl (12.0-16.0); Immature Granulocytes # (auto) 0.01 K/uL (0.01-0.20); Immature Granulocytes % (auto) 0.3 %; Mean Corpuscular Hemoglobin 28.1 pg (25.0-34.0); Mean Corpuscular Volume 84.8 fL (80.0-100.0); Platelet Count 171 K/uL (130-400); RDW Standard Deviation 40.9 fL (36.4-46.3); Red Blood Count 4.02 M/uL (4.20-5.40); White Blood Count 3.53 K/ul (4.8-10.8)
[2025-01-31 07:53] VITALS: RESP 19
[2025-01-31 08:01] LABS: Alanine Aminotransferase 39 U/L (7-52)
[2025-01-31] MEDS: THIAMINE HCL 100 MG TAB PO SCH (10:10)
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
[2025-01-31 12:13] VITALS: BP 122/87; TEMP 97.5; O2SAT 92
--- NOTE | 2025-01-31 12:31 | XCELERA ---
[id number] [id number]
[2025-01-31 14:56] VITALS: PULSE 79
== END 2025-01-31 16:48 | disposition home or self-care (01) | DRG 864 ==
LOC: EDINP 15:28 → ED 15:28 → SUATTDRO 20:03 → 2N 22:21